=== PATIENT | male | born 1950 | race Caucasian/White ===

== ENCOUNTER → 2016-09-28 | Outpatient (CLI) | payer MEDICARE ==
[2016-09-28 12:27] LABS: Anisocytosis Slight; Basophils % (A) 1 %; CH 34.9; CHCM 33.9; Eosinophils % (A) 1 %; HCT 31.3 % (39.0-53.0); HDW 3.48; HGB 10.9 gm/dL (13.0-17.5); Luc # (Auto) 0.15; Luc % (Auto) 3; Lymphocytes # (A) 1.7 k/uL (1.0-4.8); Lymphocytes % (A) 31 %; MCHC 34.7 g/dL (31.0-37.0); MCV 103.7 fL (80.0-100.0); Macrocytosis Moderate; Mean Platelet Volume 8.2; Monocytes # (A) 0.3 k/uL (0-1.0); Monocytes % (A) 5 %; Neutrophils # (A) 3.2 k/uL (1.3-7.7); Neutrophils % (A) 60 %; Poikilocytosis Slight; RBC 3.01 m/uL (4.30-5.90); RDW 17.7 % (11.5-15.5); WBC 5.4 k/uL (3.8-10.6); WBC (Perox) 5.63
[2016-09-28 12:42] LABS: ALT 37 U/L (21-72); AST 29 U/L (17-59); Anion Gap 14 mmol/L; Blood Urea Nitrogen 18 mg/dL (9-20); Calcium 9.7 mg/dL (8.4-10.2); Carbon Dioxide 25 mmol/L (22-30); Chloride 105 mmol/L (98-107); Cholesterol 150 mg/dL (<200); Glucose 92 mg/dL (74-99); HDL Cholesterol 38 mg/dL (40-60); Non-African American GFR(MDRD) >60 (>60 ml/min/1.73 sqM); Potassium 5.1 mmol/L (3.5-5.1); Sodium 144 mmol/L (137-145); Triglycerides 120 mg/dL (<150)
[2016-09-28 13:13] LABS: Prostate Specific Antigen 0.17 ng/mL (0.00-4.00)
== END ==
LOC: LABWHC1 11:17
PROVIDERS: ATTEND Internal Medicine
DX: E78.00 Pure hypercholesterolemia, unspecified (principal); E03.9 Hypothyroidism, unspecified; M19.90 Unspecified osteoarthritis, unspecified site; R35.1 Nocturia; I10 Essential (primary) hypertension
CPT/HCPCS: 36415; 80048; 80061; 84153; 84439; 84443; 84450; 84460; 85025

== ENCOUNTER → 2018-01-29 | Outpatient (CLI) | payer MEDICARE ==
[2018-01-29 13:22] LABS: Anisocytosis Slight; HCT 28.1 % (39.0-53.0); HGB 9.5 gm/dL (13.0-17.5); MCH 32.5 pg (25.0-35.0); MCHC 33.7 g/dL (31.0-37.0); MCV 96.4 fL (80.0-100.0); Macrocytosis Slight; Mean Platelet Volume 11.9; Poikilocytosis Slight; RBC 2.92 m/uL (4.30-5.90); RDW 18.9 % (11.5-15.5); WBC 5.1 k/uL (3.8-10.6)
[2018-01-29 13:23] LABS: Platelet Count 26 k/uL (150-450)
[2018-01-29 13:37] LABS: Lymphocytes # (M) 0.61 k/uL (1.0-4.8); Monocytes # (M) 0.66 k/uL (0-1.0); Neutrophils # (M) 3.83 k/uL (1.3-7.7); Neutrophils % (M) 75 %; Nucleated Red Blood Cells 0 /100 WBC (0-0); Total Cells Counted 100
[2018-01-29 18:37] LABS: Albumin/Globulin Ratio 2.86 (1.20-2.10); Anion Gap 7.6 mmol/L (4.00-12.00); Calcium 8.8 mg/dL (8.7-10.3); Carbon Dioxide 29.4 mmol/L (21.6-31.8); Globulin 1.4 g/dL (2.1-3.7); Potassium 4.8 mmol/L (3.5-5.5); Total Bilirubin 0.8 mg/dL (0.2-1.2); Total Protein 5.4 g/dL (6.2-8.2)
== END ==
LOC: LABWHC1 11:18
PROVIDERS: ATTEND Nurse Practitioner Family
DX: C90.00 Multiple myeloma not having achieved remission (principal); Z94.84 Stem cells transplant status
CPT/HCPCS: 36415; 80053; 85025

== ENCOUNTER 2018-04-11 14:23 | Inpatient (IN) | payer MEDICARE ==
[2018-04-11] MEDS ORDERED: SODIUM CHLORIDE 0.9% 1,000 ML IV STA (15:33)
[2018-04-11] MEDS ORDERED: SODIUM CHLORIDE 0.9% 500 ML 500 ML IV STA (15:33)
[2018-04-11 16:00] LABS: Basophils % (A) 0 %; Eosinophils # (A) 0.2 k/uL (0-0.7); Eosinophils % (A) 2 %; HCT 39.9 % (39.0-53.0); HGB 13.4 gm/dL (13.0-17.5); Lymphocytes # (A) 2.3 k/uL (1.0-4.8); Lymphocytes % (A) 19 %; MCH 33.8 pg (25.0-35.0); MCHC 33.6 g/dL (31.0-37.0); MCV 100.9 fL (80.0-100.0); Macrocytosis Slight; Mean Platelet Volume 7.5; Monocytes # (A) 0.6 k/uL (0-1.0); Monocytes % (A) 5 %; Neutrophils # (A) 8.6 k/uL (1.3-7.7); Neutrophils % (A) 72 %; Platelet Count 131 k/uL (150-450); RBC 3.95 m/uL (4.30-5.90); RDW 15.7 % (11.5-15.5); WBC 11.8 k/uL (3.8-10.6)
[2018-04-11 16:08] LABS: ALT 24 U/L (21-72); AST 20 U/L (17-59); Alkaline Phosphatase 93 U/L (38-126); Amylase 55 U/L (30-110); Anion Gap 11 mmol/L; Blood Urea Nitrogen 16 mg/dL (9-20); Calcium 9.7 mg/dL (8.4-10.2); Carbon Dioxide 26 mmol/L (22-30); Chloride 103 mmol/L (98-107); Glucose 77 mg/dL (74-99); Lipase 157 U/L (23-300); Magnesium 1.6 mg/dL (1.6-2.3); Phosphorus 4.8 mg/dL (2.5-4.5); Potassium 4.4 mmol/L (3.5-5.1); Sodium 140 mmol/L (137-145); Total Bilirubin 0.5 mg/dL (0.2-1.3); Total Protein 6.4 g/dL (6.3-8.2)
--- NOTE | 2018-04-11 16:09 | ED ---
General Adult HPI - General Chief complaint: Abdominal Pain Stated complaint: Abd pain Source: patient, RN notes reviewed, old records reviewed Mode of arrival: ambulatory Limitations: no limitations - History of Present Illness Initial comments: 68-year-old male patient past medical history of multiple myeloma, atrial fibrillation, pacemaker presents to ED with 5 days of abdominal pain. Patient is not on any anticoagulants. Patient states that the abdominal pain is located in his suprapubic, right lower quadrant, left lower quadrant region. Patient states that the pain has been waxing and waning for the last 5 days. Patient states that today he developed some epigastric pain that resolved. Patient denies any chest pain or shortness of breath. Patient denies any vomiting or diarrhea. Patient states that he has had some nausea without emesis. Patient states that he is having normal bowel movements. Patient states that he is urinating at baseline. Denies all other complaints. Systemic: Pt denies fatigue, myalgia, fever/chills, rash. Pt denies weakness, night sweats, weight loss. Neuro: Pt denies headache, visual disturbances, syncope or pre-syncope. HEENT: Pt denies ocular discharge or irritation, otalgia, rhinorrhea, pharyngitis or notable lymphadenopathy. Cardiopulmonary: Pt denies chest pain, SOB, heart palpitations, dyspnea on exertion. : Pt denies dysuria, burning w/ urination, frequency/urgency. Denies new onset urinary or bowel incontinence. MSK: Pt denies myalgia, loss of strength or function in extremities. Neuro: Pt denies new onset weakness, paresthesias. - Related Data Home Medications Medication Instructions Recorded Confirmed Allopurinol [Zyloprim] 100 mg PO DAILY 08/28/13 04/11/18 Ascorbic Acid [Vitamin C] 1,000 mg PO DAILY 08/28/13 04/11/18 Colchicine [Colcrys] 0.6 mg PO DAILY PRN 08/28/13 04/11/18 HYDROcodone/APAP 10-325MG [[place] 1 tab PO Q6H PRN 08/28/13 04/11/18 10] Acyclovir [Zovirax] 800 mg PO BID 04/11/18 04/11/18 Aspirin EC [Ecotrin] 325 mg PO DAILY 04/11/18 04/11/18 Carvedilol [Coreg] 3.125 mg PO QAM 04/11/18 04/11/18 Carvedilol [Coreg] 6.25 mg PO HS 04/11/18 04/11/18 Cyanocobalamin (Vitamin B-12) 1,000 mcg PO DAILY 04/11/18 04/11/18 [Vitamin B-12] Dofetilide [Tikosyn] 500 mcg PO BID 04/11/18 04/11/18 Ferrous Sulfate [Feosol] 325 mg PO DAILY 04/11/18 04/11/18 Furosemide [Lasix] 20 mg PO DAILY 04/11/18 04/11/18 Gabapentin [Neurontin] 900 mg PO TID 04/11/18 04/11/18 Levothyroxine Sodium [Synthroid] 75 mcg PO DAILY 04/11/18 04/11/18 Magnesium Oxide 400 mg PO HS 04/11/18 04/11/18 [place]-3 Fatty Acids/Fish Oil [Fish 1 cap PO BID 04/11/18 04/11/18 Oil 1,000 mg Softgel] Omeprazole 40 mg PO DAILY 04/11/18 04/11/18 Spironolactone [Aldactone] 25 mg PO HS 04/11/18 04/11/18 Tamsulosin HCl [Flomax] 0.4 mg PO DAILY 04/11/18 04/11/18 Triple Flex 1 tab PO BID 04/11/18 04/11/18 traZODone HCL 50 mg PO HS PRN 04/11/18 04/11/18 Allergies Allergy/AdvReac Type Severity Reaction Status Date / Time morphine Allergy Rash/Hives Verified 04/11/18 15:55 Penicillins Allergy Rash/Hives Verified 04/11/18 15:55 Review of Systems ROS Statement: Those systems with pertinent positive or pertinent negative responses have been documented in the HPI. ROS Other: All systems not noted in ROS Statement are negative. Past Medical History Additional Past Medical History / Comment(s): Miltple myaloma, History of Any Multi-Drug Resistant Organisms: None Reported Past Surgical History: Pacemaker Additional Past Surgical History / Comment(s): Knee surgery x2, back surgery Past Psychological History: No Psychological Hx Reported Smoking Status: Never smoker Past Alcohol Use History: Occasional Past Drug Use History: None Reported - Past Family History Mother Family Medical History: Coronary Artery Disease (CAD), Diabetes Mellitus Additional Family Medical History / Comment(s): CABG Father Family Medical History: Diabetes Mellitus General Exam - General Exam Comments Initial Comments: Constitutional: NAD, AOX3, Pt has pleasant affect. HEENT: NC/AT, trachea midline, neck supple, no lymphadenopathy. Posterior pharynx non erythematous, without exudates. External ears appear normal, without discharge. Mucous membranes moist. Eyes PERRLA, EOM intact. There is no scleral icterus. No pallor noted. Cardiopulmonary: RRR, no murmurs, rubs or gallops, no JVD noted. Lungs CTAB in anterior and posterior chan. No peripheral edema. Abdominal exam: Abdomen soft and non-distended. Abdomen mildly tender to palpation in RLQ, suprapubic, LLQ region. Psoas sign negative. Obturator sign negative. . Bowel sounds active in LLQ. No hepatosplenomegaly. No ecchymosis. No guarding no rigidity. Neuro: CN II-XII intact. No nuchal rigidity. MSK: No posterior calf tenderness bilaterally, homans sign negative bilaterally. Posterior tibialis and radial pulse +2 bilaterally. Sensation intact in upper and lower extremities. Full active ROM in upper and lower extremities, 5/5 stregnth. Limitations: no limitations Course Vital Signs 04/11/18 04/11/18 04/11/18 14:37 18:28 20:26 Temperature 97.5 F L 98.7 F Pulse Rate 92 92 87 Respiratory 20 18 18 Rate Blood Pressure 117/73 143/86 145/87 O2 Sat by Pulse 98 98 97 Oximetry Medical Decision Making - Medical Decision Making 68-year-old male patient past medical history of multiple myeloma, atrial fibrillation, pacemaker presents to ED with 5 days of abdominal pain. Patient is not on any anticoagulants. Patient states that the abdominal pain is located in his suprapubic, right lower quadrant, left lower quadrant region. Patient states that the pain has been waxing and waning for the last 5 days. Patient states that today he developed some epigastric pain that resolved. Patient denies any chest pain or shortness of breath. Patient denies any vomiting or diarrhea. Patient states that he has had some nausea without emesis. Denies all other complaints. Physical exam displayed: Abdomen mildly tender to palpation in RLQ, suprapubic, LLQ region. Psoas sign negative. Obturator sign negative. Laboratory investigations revealed mild oxytocin 11.8. Platelets of 131 which is at baseline for patient. CMP nonimpressive. Troponin mildly elevated at .052. Phosphorous mildly elevated at 4.8. UA wnl. CT abdomen and pelvis displayed diffuse thickening and hepatic flexure and proximal transverse colon suspicious for acute colitis. Chest CTA did not display acute pulmonary embolism. EKG displayed paced rhythm. Pt admitted for further evaluation and serial troponins. Case discussed in depth with Dr. Cavazos. - Lab Data Result diagrams: 04/11/18 15:06 04/11/18 15:06 Lab Results 04/11/18 04/11/18 04/11/18 Range/Units 15:06 15:06 15:06 WBC 11.8 H (3.8-10.6) k/uL RBC 3.95 L (4.30-5.90) m/uL Hgb 13.4 (13.0-17.5) gm/dL Hct 39.9 (39.0-53.0) % MCV 100.9 H (80.0-100.0) fL MCH 33.8 (25.0-35.0) pg MCHC 33.6 (31.0-37.0) g/dL RDW 15.7 H (11.5-15.5) % Plt Count 131 L (150-450) k/uL Neutrophils % 72 % Lymphocytes % 19 % Monocytes % 5 % Eosinophils % 2 % Basophils % 0 % Neutrophils # 8.6 H (1.3-7.7) k/uL Lymphocytes # 2.3 (1.0-4.8) k/uL Monocytes # 0.6 (0-1.0) k/uL Eosinophils # 0.2 (0-0.7) k/uL Basophils # 0.0 (0-0.2) k/uL Macrocytosis Slight Sodium 140 (137-145) mmol/L Potassium 4.4 (3.5-5.1) mmol/L Chloride 103 (98-107) mmol/L Carbon Dioxide 26 (22-30) mmol/L Anion Gap 11 mmol/L BUN 16 (9-20) mg/dL Creatinine 0.82 (0.66-1.25) mg/dL Est GFR (CKD-EPI)AfAm >90 (>60 ml/min/1.73 sqM) Est GFR (CKD-EPI)NonAf >90 (>60 ml/min/1.73 sqM) Glucose 77 (74-99) mg/dL Plasma Lactic Acid Sarbjit (0.7-2.0) mmol/L Calcium 9.7 (8.4-10.2) mg/dL Phosphorus 4.8 H (2.5-4.5) mg/dL Magnesium 1.6 (1.6-2.3) mg/dL Total Bilirubin 0.5 (0.2-1.3) mg/dL AST 20 (17-59) U/L ALT 24 (21-72) U/L Alkaline Phosphatase 93 (38-126) U/L Troponin I 0.052 H* (0.000-0.034) ng/mL Total Protein 6.4 (6.3-8.2) g/dL Albumin 4.0 (3.5-5.0) g/dL Amylase 55 (30-110) U/L Lipase 157 (23-300) U/L Urine Color Urine Appearance (Clear) Urine pH (5.0-8.0) Ur Specific Noti (1.001-1.035) Urine Protein (Negative) Urine Glucose (UA) (Negative) Urine Ketones (Negative) Urine Blood (Negative) Urine Nitrite (Negative) Urine Bilirubin (Negative) Urine Urobilinogen (<2.0) mg/dL Ur Leukocyte Esterase (Negative) 04/11/18 04/11/18 Range/Units 16:39 16:39 WBC (3.8-10.6) k/uL RBC (4.30-5.90) m/uL Hgb (13.0-17.5) gm/dL Hct (39.0-53.0) % MCV (80.0-100.0) fL MCH (25.0-35.0) pg MCHC (31.0-37.0) g/dL RDW (11.5-15.5) % Plt Count (150-450) k/uL Neutrophils % % Lymphocytes % % Monocytes % % Eosinophils % % Basophils % % Neutrophils # (1.3-7.7) k/uL Lymphocytes # (1.0-4.8) k/uL Monocytes # (0-1.0) k/uL Eosinophils # (0-0.7) k/uL Basophils # (0-0.2) k/uL Macrocytosis Sodium (137-145) mmol/L Potassium (3.5-5.1) mmol/L Chloride (98-107) mmol/L Carbon Dioxide (22-30) mmol/L Anion Gap mmol/L BUN (9-20) mg/dL Creatinine (0.66-1.25) mg/dL Est GFR (CKD-EPI)AfAm (>60 ml/min/1.73 sqM) Est GFR (CKD-EPI)NonAf (>60 ml/min/1.73 sqM) Glucose (74-99) mg/dL Plasma Lactic Acid Sarbjit 0.8 (0.7-2.0) mmol/L Calcium (8.4-10.2) mg/dL Phosphorus (2.5-4.5) mg/dL Magnesium (1.6-2.3) mg/dL Total Bilirubin (0.2-1.3) mg/dL AST (17-59) U/L ALT (21-72) U/L Alkaline Phosphatase (38-126) U/L Troponin I (0.000-0.034) ng/mL Total Protein (6.3-8.2) g/dL Albumin (3.5-5.0) g/dL Amylase (30-110) U/L Lipase (23-300) U/L Urine Color Light Yellow Urine Appearance Clear (Clear) Urine pH 5.5 (5.0-8.0) Ur Specific Noti 1.010 (1.001-1.035) Urine Protein Negative (Negative) Urine Glucose (UA) Negative (Negative) Urine Ketones Negative (Negative) Urine Blood Negative (Negative) Urine Nitrite Negative (Negative) Urine Bilirubin Negative (Negative) Urine Urobilinogen <2.0 (<2.0) mg/dL Ur Leukocyte Esterase Negative (Negative) - EKG Data -: EKG Interpreted by Me (and dr cavazos ) EKG Comments: ventricular rate 82, QRS 90, QT/QTc 402/469. Electronic atrial pacemaker. Disposition Clinical Impression: Elevated troponin, Abdominal pain Disposition: ADMITTED IP TO THIS HOSP Condition: Fair
[2018-04-11 16:46] LABS: Appearance,Urine Clear (Clear); Bilirubin,Urine Negative (Negative); Blood,Urine Negative (Negative); Color,Urine Light Yellow; Glucose,Urine (UA) Negative (Negative); Ketones,Urine Negative (Negative); Leukocyte Esterase,Urine Negative (Negative); Nitrite,Urine Negative (Negative); PH, Urine 5.5 (5.0-8.0); Protein,Urine Negative (Negative); Urobilinogen,Urine <2.0 mg/dL (<2.0)
[2018-04-11] MEDS ORDERED: ACETAMINOPHEN TAB 325 MG TAB PO STA (17:05)
--- NOTE | 2018-04-11 18:09 | CT ---
CT CHEST FOR PULMONARY EMBOLISM. EXAMINATION TYPE: CT angio chest DATE OF EXAM: 04/11/2018 INDICATION: Lower abdominal pain CT DLP: 653.46 mGycm, Automated exposure control for dose reduction was used. CONTRAST: Patient injected with 100 mL of Isovue 370. COMPARISON: None TECHNIQUE: CT of the chest is performed on a spiral scan at 2 mm thick sections. Study is performed with intravenous contrast timed for evaluation for pulmonary embolism. This will limit additional po rtions of the evaluation. 3-D MIP images reconstructed by the technologist are reviewed on the compu ter in the coronal and sagittal planes. FINDINGS: No persistent filling defects are evident to suggest an acute pulmonary embolism. No mediastinal or hilar adenopathy enlarged by CT criteria is evident. The ascending aorta diameter at the level of the main pulmonary artery is 3.6 cm. The main pulmonary artery diameter at the bifur cation is 2.9 cm. There may be some coronary artery calcification present. Lung windows are clear. No suspicious lytic lesions are evident. Spondylosis is through the thoracic spine. Limited CT section through the upper abdomen are unremarkable. IMPRESSIONS: 1. No acute pulmonary embolism.
--- NOTE | 2018-04-11 18:19 | CT ---
EXAMINATION TYPE: CT abdomen pelvis w con DATE OF EXAM: 04/11/2018 COMPARISON: Abdomen pain INDICATION: Lower abdominal pain DLP: 1232.3 mGycm, Automated exposure control for dose reduction was used. CONTRAST: 100 mL of Isovue 370. Study performed without Oral Contrast TECHNIQUE: Axial images were obtained from above the diaphragm to the pubic rami in the axial plane a t 5 mm thick sections. Reconstructed images are reviewed on the computer in the coronal plane. FINDINGS: Limited CT sections are obtained the lung bases. The lung bases are clear. Moderate coronary artery calcification is noted. CT ABDOMEN: Liver: Normal Spleen: Normal Pancreas: Normal Adrenal glands: The adrenal glands are normal. Gallbladder: Normal Kidneys: No masses are evident. No hydronephrosis is present. No cysts are present. Delayed images were obtained through the kidneys, which remain unremarkable. Aorta: Vascular calcification is within the aorta. Inferior vena cava: Normal. CT PELVIS: There is some wall thickening within the hepatic flexure and proximal transverse colon. Correlate for colitis. Descending colon appears unremarkable. Sigmoid colon is unremarkable. Appendix: Not identified. Urinary bladder: Normal. Genitourinary structures: Prostate is normal. Osseous structures: No suspicious lytic or sclerotic lesions. Sacroiliac joint degenerative changes a re present greater on the left. There is attempted sacralization of L5 on the right. Facet degenerati ve changes are present. Degenerative disc changes within the lumbar spine. IMPRESSIONS: 1. Diffuse thickening at the hepatic flexure and proximal transverse colon suspicious for acute coli tis.
[2018-04-11] MEDS ORDERED: ACETAMINOPHEN TAB 325 MG TAB PO PRN (19:49)
[2018-04-11] MEDS ORDERED: NITROGLYCERIN SL TABS 0.4 MG TAB SUBLINGUAL PRN (19:49)
[2018-04-11 21:33] VITALS: BMI 33.5
[2018-04-11 22:47] LABS: Creatine Kinase MB 0.8 ng/mL (0.0-2.4)
[2018-04-11] MEDS ORDERED: HYDROmorphone 0.5 MG/0.5 ML SYRINGE IVP PRN (22:47)
[2018-04-11] MEDS ORDERED: LEVOFLOXACIN 500MG-D5W PMX 500 MG in DEXTROSE/WATER 1 100ML.BAG IVPB SCH (23:00)
[2018-04-11 23:03] LABS: Troponin I 0.037 ng/mL (0.000-0.034)
[2018-04-11] MEDS ORDERED: traZODone HCL 50 MG TAB PO PRN (23:18)
[2018-04-11] MEDS ORDERED: HYDROcodone/APAP 10-325MG 1 EACH TAB PO PRN (23:18)
[2018-04-11] MEDS ORDERED: MAGNESIUM OXIDE 400 MG TAB PO SCH (23:30)
[2018-04-11] MEDS ORDERED: CARVEDILOL 6.25 MG TAB PO SCH (23:30)
[2018-04-12] MEDS: GABAPENTIN 300 MG CAP PO SCH ×3 (00:13→14:19)
[2018-04-12] MEDS: NITROGLYCERIN OINT 1 INCH/GM PACKET TOPICAL SCH ×2 (00:15→06:41)
[2018-04-12] MEDS: DOFETILIDE 500 MCG CAP PO SCH ×2 (00:17→08:06)
[2018-04-12] MEDS: ACYCLOVIR 800 MG TAB PO SCH ×2 (00:17→08:06)
[2018-04-12] MEDS: metroNIDAZOLE-NS PMX 500 MG in SALINE 1 100ML.BAG IVPB SCH ×3 (00:56→14:19)
[2018-04-12 03:51] LABS: Amylase 35 U/L (30-110); Anion Gap 7 mmol/L; Blood Urea Nitrogen 15 mg/dL (9-20); Calcium 9.1 mg/dL (8.4-10.2); Carbon Dioxide 24 mmol/L (22-30); Chloride 108 mmol/L (98-107); Cholesterol 214 mg/dL (<200); Glucose 102 mg/dL (74-99); HDL Cholesterol 30 mg/dL (40-60); LDL Cholesterol,Calculated 149 mg/dL (0-99); Lipase 27 U/L (23-300); Potassium 3.9 mmol/L (3.5-5.1); Sodium 139 mmol/L (137-145); Triglycerides 173 mg/dL (<150)
[2018-04-12 03:53] LABS: Anisocytosis Slight; Basophils % (A) 0 %; Eosinophils # (A) 0.2 k/uL (0-0.7); Eosinophils % (A) 2 %; HCT 34.7 % (39.0-53.0); HGB 11.2 gm/dL (13.0-17.5); Lymphocytes # (A) 1.7 k/uL (1.0-4.8); Lymphocytes % (A) 21 %; MCH 32.9 pg (25.0-35.0); MCHC 32.1 g/dL (31.0-37.0); MCV 102.2 fL (80.0-100.0); Macrocytosis Slight; Mean Platelet Volume 6.8; Monocytes # (A) 0.4 k/uL (0-1.0); Monocytes % (A) 5 %; Neutrophils # (A) 5.5 k/uL (1.3-7.7); Neutrophils % (A) 69 %; Platelet Count 111 k/uL (150-450); RBC 3.39 m/uL (4.30-5.90); RDW 16.1 % (11.5-15.5); WBC 7.9 k/uL (3.8-10.6)
[2018-04-12 04:13] LABS: Creatine Kinase MB 0.8 ng/mL (0.0-2.4)
[2018-04-12 04:15] LABS: Troponin I 0.044 ng/mL (0.000-0.034)
[2018-04-12 08:17] VITALS: PULSE 91; RESP 18
[2018-04-12] MEDS ORDERED: ASPIRIN 325 MG TAB PO SCH (09:00)
[2018-04-12] MEDS ORDERED: CARVEDILOL 3.125 MG TAB PO SCH (10:15)
--- NOTE | 2018-04-12 11:15 | P.HPIM ---
History of Present Illness 59-year-old pleasant gentleman with history of multiple myeloma which is in remission came in with complaints of a crampy abdominal pain in the right lower quadrant found to have colitis probably infectious colitis significantly improved symptoms with pneumatics metronidazole and levofloxacin and the patient 's symptoms improved at this time. Patient has mildly elevated troponins without any significant EKG changes appears to have chronically elevated troponins for which patient is getting echocardiogram. Patient will be discharged today after the echocardiogram results on oral ciprofloxacin and metronidazole for about a week. Patient does have history of atrial fibrillation. Patient used to be on anticoagulation with Coumadin which was discontinued when he was being treated for multiple myeloma. I discussed with him regarding anticoagulation patient wanted to talk to his general technician in couple days and decide on anti-correlation at the time area patient is agreeable to go back on anti-correlation but wanted to talk to his general technician. Review of Systems REVIEW OF SYSTEMS: CONSTITUTIONAL: No fever, no malaise, no fatigue. HEENT: No recent visual problems or hearing problems. Denied any sore throat. CARDIOVASCULAR: No chest pain, orthopnea, PND, no palpitations, no syncope. PULMONARY: No shortness of breath, no cough, no hemoptysis. GASTROINTESTINAL: As per HPI NEUROLOGICAL: No headaches, no weakness, no numbness. HEMATOLOGICAL: Denies any bleeding or petechiae. GENITOURINARY: Denies any burning micturition, frequency, or urgency. MUSCULOSKELETAL/RHEUMATOLOGICAL: Denies any joint pain, swelling, or any muscle pain. ENDOCRINE: Denies any polyuria or polydipsia. The rest of the 14-point review of systems is negative. Past Medical History Past Medical History: Atrial Fibrillation, Heart Failure, CVA/TIA, Hypertension , Osteoarthritis (OA), Sleep Apnea/CPAP/BIPAP Additional Past Medical History / Comment(s): Miltple myaloma, History of Any Multi-Drug Resistant Organisms: None Reported Past Surgical History: Pacemaker Additional Past Surgical History / Comment(s): Knee surgery x2, back surgery Past Anesthesia/Blood Transfusion Reactions: No Reported Reaction Type of Cardiac Device: Permanent Pacemaker Device Placement Date:: 2011 Past Psychological History: No Psychological Hx Reported Smoking Status: Never smoker Past Alcohol Use History: Occasional Past Drug Use History: None Reported - Past Family History Mother Family Medical History: Coronary Artery Disease (CAD), Diabetes Mellitus Additional Family Medical History / Comment(s): CABG Father Family Medical History: Diabetes Mellitus Medications and Allergies Home Medications Medication Instructions Recorded Confirmed Type Allopurinol [Zyloprim] 100 mg PO DAILY 08/28/13 04/11/18 History Ascorbic Acid [Vitamin C] 1,000 mg PO DAILY 08/28/13 04/11/18 History Colchicine [Colcrys] 0.6 mg PO DAILY PRN 08/28/13 04/11/18 History HYDROcodone/APAP 10-325MG [[place] 1 tab PO Q6H PRN 08/28/13 04/11/18 History 10] Acyclovir [Zovirax] 800 mg PO BID 04/11/18 04/11/18 History Aspirin EC [Ecotrin] 325 mg PO DAILY 04/11/18 04/11/18 History Carvedilol [Coreg] 3.125 mg PO QAM 04/11/18 04/11/18 History Carvedilol [Coreg] 6.25 mg PO HS 04/11/18 04/11/18 History Cyanocobalamin (Vitamin B-12) 1,000 mcg PO DAILY 04/11/18 04/11/18 History [Vitamin B-12] Dofetilide [Tikosyn] 500 mcg PO BID 04/11/18 04/11/18 History Ferrous Sulfate [Feosol] 325 mg PO DAILY 04/11/18 04/11/18 History Furosemide [Lasix] 20 mg PO DAILY 04/11/18 04/11/18 History Gabapentin [Neurontin] 900 mg PO TID 04/11/18 04/11/18 History Levothyroxine Sodium [Synthroid] 75 mcg PO DAILY 04/11/18 04/11/18 History Magnesium Oxide 400 mg PO HS 04/11/18 04/11/18 History [place]-3 Fatty Acids/Fish Oil [Fish 1 cap PO BID 04/11/18 04/11/18 History Oil 1,000 mg Softgel] Omeprazole 40 mg PO DAILY 04/11/18 04/11/18 History Spironolactone [Aldactone] 25 mg PO HS 04/11/18 04/11/18 History Tamsulosin HCl [Flomax] 0.4 mg PO DAILY 04/11/18 04/11/18 History Triple Flex 1 tab PO BID 04/11/18 04/11/18 History traZODone HCL 50 mg PO HS PRN 04/11/18 04/11/18 History Allergies Allergy/AdvReac Type Severity Reaction Status Date / Time morphine Allergy Rash/Hives Verified 04/11/18 15:55 Penicillins Allergy Rash/Hives Verified 04/11/18 15:55 Physical Exam Vitals: Vital Signs Temp Pulse Pulse Resp BP BP Pulse Ox 04/12/18 08:17 97.6 F 91 18 116/67 95 04/12/18 08:14 91 18 04/12/18 04:00 98.0 F 97 18 110/72 92 L 04/11/18 23:33 97.9 F 91 18 133/62 95 04/11/18 20:26 98.7 F 87 18 145/87 97 04/11/18 18:28 92 18 143/86 98 04/11/18 14:37 97.5 F L 92 20 117/73 98 Intake and Output 04/11/18 04/12/18 04/12/18 22:59 06:59 14:59 Intake Total 540 1300 Output Total 1500 Balance 540 -200 Intake: IV 1200 .9 @ 100 1200 Intake, IV Titration 100 Amount metroNIDAZOLE-NS PMX 500 100 mg In Saline 1 100ml.bag @ 100 mls/hr IVPB Q8HR [facility] Rx#:[id number] Oral 540 Output: Urine 1500 Other: Voiding Method Urinal Toilet Urinal # Voids 4 Weight 91.6 kg 93.3 kg PHYSICAL EXAMINATION: GENERAL: The patient is alert and oriented x3, not in any acute distress. Well developed, well nourished. HEENT: Pupils are round and equally reacting to light. EOMI. No scleral icterus. No conjunctival pallor. Normocephalic, atraumatic. No pharyngeal erythema. No thyromegaly. CARDIOVASCULAR: S1 and S2 present. No murmurs, rubs, or gallops. PULMONARY: Chest is clear to auscultation, no wheezing or crackles. ABDOMEN: Soft, nontender, nondistended, normoactive bowel sounds. No palpable organomegaly. MUSCULOSKELETAL: No joint swelling or deformity. EXTREMITIES: No cyanosis, clubbing, or pedal edema. NEUROLOGICAL: Gross neurological examination did not reveal any focal deficits. SKIN: No rashes. Results CBC & Chem 7: 04/12/18 03:09 04/12/18 03:09 Labs: Abnormal Lab Results - Last 24 Hours (Table) 04/11/18 04/11/18 04/11/18 Range/Units 15:06 15:06 15:06 WBC 11.8 H (3.8-10.6) k/uL RBC 3.95 L (4.30-5.90) m/uL Hgb (13.0-17.5) gm/dL Hct (39.0-53.0) % MCV 100.9 H (80.0-100.0) fL RDW 15.7 H (11.5-15.5) % Plt Count 131 L (150-450) k/uL Neutrophils # 8.6 H (1.3-7.7) k/uL Chloride (98-107) mmol/L Glucose (74-99) mg/dL Phosphorus 4.8 H (2.5-4.5) mg/dL Total Creatine Kinase (55-170) U/L Troponin I 0.052 H* (0.000-0.034) ng/mL Triglycerides (<150) mg/dL Cholesterol (<200) mg/dL LDL Cholesterol, Calc (0-99) mg/dL HDL Cholesterol (40-60) mg/dL 04/11/18 04/12/18 04/12/18 Range/Units 21:34 03:09 03:09 WBC (3.8-10.6) k/uL RBC (4.30-5.90) m/uL Hgb (13.0-17.5) gm/dL Hct (39.0-53.0) % MCV (80.0-100.0) fL RDW (11.5-15.5) % Plt Count (150-450) k/uL Neutrophils # (1.3-7.7) k/uL Chloride 108 H (98-107) mmol/L Glucose 102 H (74-99) mg/dL Phosphorus (2.5-4.5) mg/dL Total Creatine Kinase 26 L 24 L (55-170) U/L Troponin I 0.037 H* 0.044 H* (0.000-0.034) ng/mL Triglycerides 173 H (<150) mg/dL Cholesterol 214 H (<200) mg/dL LDL Cholesterol, Calc 149 H (0-99) mg/dL HDL Cholesterol 30 L (40-60) mg/dL 04/12/18 Range/Units 03:09 WBC (3.8-10.6) k/uL RBC 3.39 L (4.30-5.90) m/uL Hgb 11.2 L (13.0-17.5) gm/dL Hct 34.7 L (39.0-53.0) % MCV 102.2 H (80.0-100.0) fL RDW 16.1 H (11.5-15.5) % Plt Count 111 L (150-450) k/uL Neutrophils # (1.3-7.7) k/uL Chloride (98-107) mmol/L Glucose (74-99) mg/dL Phosphorus (2.5-4.5) mg/dL Total Creatine Kinase (55-170) U/L Troponin I (0.000-0.034) ng/mL Triglycerides (<150) mg/dL Cholesterol (<200) mg/dL LDL Cholesterol, Calc (0-99) mg/dL HDL Cholesterol (40-60) mg/dL Thrombosis Risk Factor Assmnt - Choose All That Apply Each Factor Represents 1 point: Obesity (BMI >25) Each Risk Factor Represents 2 Points: Age 61-74 years, Malignancy Other congenital or acquired thrombophilia - If yes, enter type in comment: No Thrombosis Risk Factor Assessment Total Risk Factor Score: 5 Thrombosis Risk Factor Assessment Level: High Risk Assessment and Plan Plan: -Abdominal pain: Secondary to colitis patient will be treated with infectious colitis patient's symptoms improved patient will be discharged on oral antibiotics for a week if his symptoms come back patient that at that time will need a colonoscopy. -Mildly elevated troponins patient has chronic induration of troponins no evidence of acute myocardial infarction. -Atrial fibrillation presently rate controlled sinus rhythm not on anti- correlation, anti-coagulation will be discussed with his general technician as an outpatient by the patient. 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
--- NOTE | 2018-04-12 11:16 | P.DS ---
Providers Date of admission: 04/11/18 19:33 Attending physician: Rodo Price Consults: 04/11/18 19:50 Consult Physician Urgent Consulting Provider: Roberto Wood Consult Reason/Comments: elevated troponin Do you want consulting provider notified?: Yes Primary care physician: Ismael Silverio [facility] Course: Please refer to my HPI Patient Condition at Discharge: Fair Plan - Discharge Summary New Discharge Prescriptions: New Atorvastatin [Lipitor] 40 mg PO HS #30 tablet Cefuroxime Axetil [Ceftin] 500 mg PO BID 7 Days #14 tab metroNIDAZOLE [Flagyl] 500 mg PO TID #20 tab Continue Ascorbic Acid [Vitamin C] 1,000 mg PO DAILY HYDROcodone/APAP 10-325MG [[place] 10-325] 1 tab PO Q6H PRN PRN Reason: Pain Colchicine [Colcrys] 0.6 mg PO DAILY PRN PRN Reason: gout Allopurinol [Zyloprim] 100 mg PO DAILY Tamsulosin HCl [Flomax] 0.4 mg PO DAILY Aspirin EC [Ecotrin] 325 mg PO DAILY Spironolactone [Aldactone] 25 mg PO HS Furosemide [Lasix] 20 mg PO DAILY Acyclovir [Zovirax] 800 mg PO BID Omeprazole 40 mg PO DAILY Ferrous Sulfate [Iron (65 MG Elemental)] 325 mg PO DAILY Gabapentin [Neurontin] 900 mg PO TID traZODone HCL 50 mg PO HS PRN PRN Reason: Insomnia Dofetilide [Tikosyn] 500 mcg PO BID Carvedilol [Coreg] 3.125 mg PO QAM Carvedilol [Coreg] 6.25 mg PO HS Triple Flex 1 tab PO BID Cyanocobalamin (Vitamin B-12) [Vitamin B-12] 1,000 mcg PO DAILY Levothyroxine Sodium [Synthroid] 75 mcg PO DAILY [place]-3 Fatty Acids/Fish Oil [Fish Oil 1,000 mg Softgel] 1 cap PO BID Magnesium Oxide 400 mg PO HS Discharge Medication List Allopurinol [Zyloprim] 100 mg PO DAILY 08/28/13 [History] Ascorbic Acid [Vitamin C] 1,000 mg PO DAILY 08/28/13 [History] Colchicine [Colcrys] 0.6 mg PO DAILY PRN 08/28/13 [History] HYDROcodone/APAP 10-325MG [[place] 10-325] 1 tab PO Q6H PRN 08/28/13 [History] Acyclovir [Zovirax] 800 mg PO BID 04/11/18 [History] Aspirin EC [Ecotrin] 325 mg PO DAILY 04/11/18 [History] Carvedilol [Coreg] 3.125 mg PO QAM 04/11/18 [History] Carvedilol [Coreg] 6.25 mg PO HS 04/11/18 [History] Cyanocobalamin (Vitamin B-12) [Vitamin B-12] 1,000 mcg PO DAILY 04/11/18 [ History] Dofetilide [Tikosyn] 500 mcg PO BID 04/11/18 [History] Ferrous Sulfate [Iron (65 MG Elemental)] 325 mg PO DAILY 04/11/18 [History] Furosemide [Lasix] 20 mg PO DAILY 04/11/18 [History] Gabapentin [Neurontin] 900 mg PO TID 04/11/18 [History] Levothyroxine Sodium [Synthroid] 75 mcg PO DAILY 04/11/18 [History] Magnesium Oxide 400 mg PO HS 04/11/18 [History] [place]-3 Fatty Acids/Fish Oil [Fish Oil 1,000 mg Softgel] 1 cap PO BID 04/11/18 [ History] Omeprazole 40 mg PO DAILY 04/11/18 [History] Spironolactone [Aldactone] 25 mg PO HS 04/11/18 [History] Tamsulosin HCl [Flomax] 0.4 mg PO DAILY 04/11/18 [History] Triple Flex 1 tab PO BID 04/11/18 [History] traZODone HCL 50 mg PO HS PRN 04/11/18 [History] Atorvastatin [Lipitor] 40 mg PO HS #30 tablet 04/12/18 [Rx] Cefuroxime Axetil [Ceftin] 500 mg PO BID 7 Days #14 tab 04/12/18 [Rx] metroNIDAZOLE [Flagyl] 500 mg PO TID #20 tab 04/12/18 [Rx] Follow up Appointment(s)/Referral(s): Ismael Silverio MD [Primary Care Provider] - 3 Days
[2018-04-12 11:33] VITALS: BP 121/64; TEMP 97.1
--- NOTE | 2018-04-12 11:47 | CONS ---
CONSULTATION CHIEF COMPLAINT: Elevated troponin. This is a 68-year-old gentleman with history of atrial fibrillation, sick sinus syndrome, status post permanent pacemaker, hypertension, hypothyroidism, who presented to hospital complaining of lower abdominal pain. They thought this was an colitis and patient is admitted to hospital for the same. He denies chest pain or difficulty in breathing. There is no history of leg edema, paroxysmal nocturnal dyspnea or orthopnea. There is no prior history of coronary artery disease or congestive heart failure. There is no prior history of valvular heart disease. His EKG shows a paced rhythm without significant ST-T wave changes. He had cardiac enzymes that have elevated at 0.05, 0.03, 0.04. The exact etiology for elevated tropinin is unclear, especially in this patient who does not have any cardiac symptoms. His LDL cholesterol is 149. I am going to obtain a 2D echo on him to evaluate his LV function and wall motion. Patient has recent history of multiple myeloma and had received chemotherapy. PAST MEDICAL HISTORY: Significant for atrial fibrillation, hypertension, hypothyroidism, and multiple myeloma. MEDICATIONS: At home include Aldactone, trazodone, Flomax, omeprazole, fish oil, Synthroid, [place], Neurontin, Lasix, Tikosyn, Coreg, aspirin, vitamin C, Zyloprim, and [QAMARKER] Patient is allergic to MORPHINE and PENICILLIN. FAMILY HISTORY: Negative for premature coronary artery disease. SOCIAL HISTORY: Negative for current smoking, EtOH abuse, or drug abuse. REVIEW OF SYSTEMS: HEENT is unremarkable. CARDIAC: As described above. RESPIRATORY: Negative. GI: As described above. GENITOURINARY: Negative. ALLERGY/IMMUNOLOGY: Negative. SKIN: Negative. MUSCULOSKELETAL: Negative. ENDOCRINE: Negative. NEUROLOGICAL: Negative. DERMATOLOGIC: Negative. CONSTITUTIONAL: Negative. ONCOLOGICAL: Negative. Rest of the system review is not relevant. PHYSICAL EXAM: Patient is comfortable at rest. Vital signs are stable. There is no jugular venous distention. Carotid upstroke is normal. There is no bruit. Chest exam reveals good air entry bilaterally. Heart exam reveals first and second heart sounds. No gallop. No murmur. No rub. Abdomen is soft, nontender. Exam of extremities did not reveal any edema. Peripheral pulses are palpable. 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 LABS: Show that the troponins are elevated, hemoglobin was 13.4 on presentation and dropped down to 11.2. EKG does not reveal acute ischemic changes. ASSESSMENT: 1. Elevated troponin. 2. Lower abdominal pain with drop in hemoglobin. 3. History of paroxysmal atrial fibrillation. 4. History of multiple myeloma. 5. History of hypertension. 6. Sick sinus syndrome, status post permanent pacemaker. PLAN: In this patient who does not have any cardiac symptoms, the exact clinical significance of elevated troponins is unclear. His primary symptom seems to be lower abdominal pain and the primary concern is the drop in hemoglobin, probably related to colitis. He does not have any active lower GI bleed. I am going to stop the nitro paste at this time, obtain a 2D echo to assess LV function and wall motion and will decide on further course of action based on the echo findings. The patient used to be on anticoagulant. This has been stopped following his multiple myeloma diagnosis and the chemotherapy that he had received. This issue is going to be readdressed by his primary certified juvenile probation officer. He has an appointment with him soon. GILSON / IJN: [phone] /
--- NOTE | 2018-04-12 14:04 | ECHOF ---
Referral Reason:troponin MEASUREMENTS -------- HEIGHT: 165.1 cm WEIGHT: 93.0 kg BP: 116/67 RVIDd: 2.7 cm (< 3.3) IVSd: 1.3 cm (0.6 - 1.1) LVIDd: 4.7 cm (3.9 - 5.3) LVPWd: 1.3 cm (0.6 - 1.1) IVSs: 1.6 cm LVIDs: 2.9 cm LVPWs: 1.5 cm LA Diam: 3.7 cm (2.7 - 3.8) LAESV Index (A-L): 28.85 ml/m Ao Diam: 3.7 cm (2.0 - 3.7) AV Cusp: 2.5 cm (1.5 - 2.6) MV EXCURSION: 17.354 mm (> 18.000) MV EF SLOPE: 50 mm/s (70 - 150) EPSS: 1.0 cm MV E Lizandro: 1.00 m/s MV DecT: 176 ms MV A Lizandro: 0.60 m/s MV E/A Ratio: 1.66 RAP: 15.00 mmHg RVSP: 33.88 mmHg FINDINGS -------- Paced rhythm. This was a technically adequate study. The left ventricular size is normal. There is mild concentric left ventricular hypertrophy. Overa ll left ventricular systolic function is normal with, an EF between 55 - 60 %. The right ventricle is normal in size. LA is midly dilated 29-33ml/m2. The right atrium is normal in size. There is mild aortic valve sclerosis. Trace to mild aortic regurgitation. The mitral valve leaflets are mildly thickened. Mild mitral annular calcification present. Mild tricuspid regurgitation present. Right ventricular systolic pressure is normal at < 35 mmHg. Trace/mild (physiologic) pulmonic regurgitation. The aortic root size is normal. Normal inferior vena cava with less than 50% inspiratory collapse consistent with estimated right atr ial pressure of 15 mmHg. There is no pericardial effusion. CONCLUSIONS -------- 1. Paced rhythm. 2. This was a technically adequate study. 3. The left ventricular size is normal. 4. There is mild concentric left ventricular hypertrophy. 5. Overall left ventricular systolic function is normal with, an EF between 55 - 60 %. 6. The right ventricle is normal in size. 7. LA is midly dilated 29-33ml/m2. 8. The right atrium is normal in size. 9. There is mild aortic valve sclerosis. 10. Trace to mild aortic regurgitation. 11. The mitral valve leaflets are mildly thickened. 12. Mild mitral annular calcification present. 13. Mild tricuspid regurgitation present. 14. Right ventricular systolic pressure is normal at < 35 mmHg. 15. Trace/mild (physiologic) pulmonic regurgitation. 16. The aortic root size is normal. 17. Normal inferior vena cava with less than 50% inspiratory collapse consistent with estimated right atrial pressure of 15 mmHg. 18. There is no pericardial effusion. STOCK RECEIVER: Ladi Delatorre RDCS
[2018-04-12] MEDS ORDERED: SPIRONOLACTONE 25 MG TAB PO SCH (21:00)
[2018-04-13] MEDS ORDERED: LEVOTHYROXINE 75 MCG TAB PO SCH (06:30)
== END 2018-04-12 14:34 | disposition home or self-care (01) | DRG 392 ==
LOC: EC 14:23 → 3SCARD 19:33
PROVIDERS: ADMIT Hospitalist; ATTEND Hospitalist
DX: K52.9 Noninfective gastroenteritis and colitis, unspecified (principal); C90.01 Multiple myeloma in remission; E66.9 Obesity, unspecified; R77.8 Other specified abnormalities of plasma proteins; G40.909 Epilepsy, unspecified, not intractable, without status epilepticus; E03.9 Hypothyroidism, unspecified; I48.0 Paroxysmal atrial fibrillation; G47.30 Sleep apnea, unspecified; I10 Essential (primary) hypertension; Z95.0 Presence of cardiac pacemaker; Z88.5 Allergy status to narcotic agent; Z88.0 Allergy status to penicillin; Z79.82 Long term (current) use of aspirin; Z79.890 Hormone replacement therapy; Z79.899 Other long term (current) drug therapy; Z82.49 Family history of ischemic heart disease and other diseases of the circulatory system; Z83.3 Family history of diabetes mellitus; Z86.73 Personal history of transient ischemic attack (TIA), and cerebral infarction without residual deficits; Z68.34 Body mass index [BMI] 34.0-34.9, adult; Z92.21 Personal history of antineoplastic chemotherapy
CPT/HCPCS: 36415; 71275; 74177; 80048; 80053; 80061; 81003; 82150; 82550; 82553; 83605; 83690; 83735; 84100; 84484; 85025; 93005; 93306; 96360; 96361; 99285

== ENCOUNTER → 2018-06-06 | Outpatient (CLI) | payer MEDICARE ==
--- NOTE | 2018-06-06 09:30 | USB ---
Reason for exam: clinical finding. Indicated problem(s): pain in both breasts. Physical Findings: Nurse Summary: Patient complains of bilateral breast/nipple pain x 1 month, bilateral 2cm retroareolar lumps (nurse mj). US Breast BILAT Right complete breast ultrasound includes all four quadrants, the retroareolar region and axilla. Finding demonstrates a 2.2 x 1.0 x 2.3cm irregular, solid, hypoechoic lesion at the posterior nipple. Left complete breast ultrasound includes all four quadrants, the retroareolar region and axilla. Finding demonstrates a 0.6 x 0.3 x 0.6cm oval, solid, hypoechoic lesion at 12 o'clock and a 2.6 x 1.0 x 2.5cm irregular, solid, hypoechoic lesion at the posterior nipple. These results were verbally communicated with the patient and result sheet given to the patient on 06/06/18. ASSESSMENT: Probably benign, BI-RAD 3 RECOMMENDATION: Ultrasound of both breasts in 3 months. (most likely gynecomastia) Manage patient on a clinical basis.
== END | disposition home or self-care (01) ==
LOC: RADUSWWP 08:09
PROVIDERS: ATTEND Internal Medicine
DX: N64.4 Mastodynia (principal)

== ENCOUNTER → 2019-05-26 | Outpatient (CLI) | payer MEDICARE ==
--- NOTE | 2019-05-27 07:16 | MM ---
Reason for exam: clinical finding. History: Patient history of other cancer. Physical Findings: Nurse Summary: 3.5cm nodule in the right breast at nipple, 2.5cm nodule in the left breast at nipple (nurse dw). [facility] Mammo w CAD ISHMAEL Bilateral CC and MLO view(s) were taken. Left superior 2mm asymmetry improves on spot compression view. Precautionary ultrasound will be done. Bilateral symmetric flame shaped at least moderate gynecomastia. These results were verbally communicated with the patient and result sheet given to the patient on 05/26/19. ASSESSMENT: Incomplete: need additional imaging evaluation, BI-RAD 0 RECOMMENDATION: Ultrasound of the left breast.
--- NOTE | 2019-05-27 07:18 | USB ---
Reason for exam: additional evaluation requested from abnormal screening. History: Patient history of other cancer. US Breast LT Left complete breast ultrasound includes all four quadrants, the retroareolar region and axilla. Finding demonstrates a 4 x 3 x 4mm oval lesion at 12 o'clock, prior 6 x 3 x 6mm, smaller, probable lymph node and a 33mm hypoechoic gynecomastia at the posterior nipple. These results were verbally communicated with the patient and result sheet given to the patient on 05/26/19. ASSESSMENT: Probably benign, BI-RAD 3 RECOMMENDATION: Ultrasound of the left breast in 1 year.
== END | disposition home or self-care (01) ==
LOC: RADMAMWWP 14:08
PROVIDERS: ATTEND Internal Medicine
DX: R92.8 Other abnormal and inconclusive findings on diagnostic imaging of breast (principal); N62 Hypertrophy of breast
CPT/HCPCS: 77066

== ENCOUNTER → 2020-12-30 | Outpatient (CLI) | payer MEDICARE ==
--- NOTE | 2020-12-30 11:25 | USB ---
Reason for exam: additional evaluation requested from prior study. History: Patient history of other cancer. Physical Findings: Nurse Summary: firm/moves (nurse dw). US Breast LT Left complete breast ultrasound includes all four quadrants, the retroareolar region and axilla. Finding demonstrates a 0.5 x 0.4 x 0.4cm oval, hypoechoic lsion at 12 o'clock, seen on previous. No significant changes. These results were verbally communicated with the patient and result sheet given to the patient on 12/30/20. ASSESSMENT: Benign, BI-RAD 2
== END | disposition home or self-care (01) ==
LOC: RADUSWWP 08:56
PROVIDERS: ATTEND Internal Medicine
DX: N64.89 Other specified disorders of breast (principal)